=== PATIENT | male | born 2000 | race Caucasian/White ===

== ENCOUNTER 2023-02-18 02:08 | Emergency (ER) | payer OTHER ==
[2023-02-18 02:48] VITALS: BP 134/83; RESP 18; TEMP 98.1; BMI 26.1
[2023-02-18] MEDS ORDERED: DEXAMETHASONE SOD PHOSPHATE 10 MG/1 ML VIAL IVPUSH ONE (03:15)
[2023-02-18] MEDS ORDERED: LIDOCAINE 5% TOPICAL PATCH TP ONE (03:15)
[2023-02-18] MEDS ORDERED: KETOROLAC TROMETHAMINE 15 MG/ML VIAL IVPUSH ONE (03:15)
[2023-02-18] MEDS ORDERED: diazePAM CARPU-JECT 10 MG/2 ML DISP.SYRIN IVPUSH ONE (03:15)
[2023-02-18] MEDS ORDERED: LIDOCAINE 5% TOPICAL PATCH ONE (03:23)
[2023-02-18] MEDS ORDERED: DEXAMETHASONE SOD PHOSPHATE 10 MG/1 ML VIAL ONE (03:23)
[2023-02-18] MEDS ORDERED: KETOROLAC TROMETHAMINE 15 MG/ML VIAL ONE (03:24)
[2023-02-18 03:25] LABS: BASO % 0.3 % (0-2.0); EOS % 1.3 % (0-4.5); HEMATOCRIT 45.1 % (35.4-49); HEMOGLOBIN 15.5 GM/dL (11.7-16.9); LYMPH % 17.2 % (8-40); MCHC 34.4 g/dl (32.0-35.9); MEAN CELL VOLUME 87.3 fl (80-96); MEAN PLT VOLUME 9.8 fl (7.5-11.1); MONO % 7.3 % (3.8-10.2); NEUT % 73.9 % (42.8-82.8); PLATELET COUNT 173 10^3/uL (134-434); RBC 5.16 M/mm3 (4.00-5.60); RDW 13.6 % (11.9-15.9); WHITE BLOOD COUNT 7.8 K/mm3 (4.0-10.0)
[2023-02-18] MEDS ORDERED: diazePAM 5 MG TABLET PO ONE (03:25)
[2023-02-18] MEDS ORDERED: diazePAM 5 MG TABLET ONE (03:30)
[2023-02-18 03:44] LABS: CALCIUM 9.2 mg/dL (8.5-10.1)
[2023-02-18 03:45] LABS: ALBUMIN 4.3 g/dl (3.4-5.0); BLOOD UREA NITROGEN 16.4 mg/dL (7-18); MAGNESIUM 2.3 mg/dL (1.8-2.4)
[2023-02-18 03:48] LABS: CREATININE 0.9 mg/dL (0.55-1.3)
[2023-02-18 03:49] LABS: BILIRUBIN,TOTAL 0.7 mg/dL (0.2-1); TOT PROT 7.8 g/dl (6.4-8.2)
[2023-02-18 06:18] VITALS: PULSE 67
[2023-02-18] MEDS ORDERED: LIDOCAINE PATCH REMOVAL MC SCH (22:00)
== END 2023-02-18 06:26 | disposition home or self-care (01) ==
LOC: JER 02:08
PROC: 3E0333Z Introduction of Anti-inflammatory into Peripheral Vein, Percutaneous Approach (ICD-10-PCS; principal; 2023-02-18)
PROC: 3E033GC Introduction of Other Therapeutic Substance into Peripheral Vein, Percutaneous Approach (ICD-10-PCS; 2023-02-18)
DX: R07.89 Other chest pain (principal); R51.9 Headache, unspecified; G57.00 Lesion of sciatic nerve, unspecified lower limb; M54.2 Cervicalgia; R11.10 Vomiting, unspecified; R61 Generalized hyperhidrosis
CPT/HCPCS: 36415; 70450-TC; 71046-TC-FY; 80053; 83735; 84443; 84484; 85025; 93005; 93010; 99285-25; J1100